=== PATIENT | male | born 1940 | race Caucasian/White ===

== ENCOUNTER 2017-01-05 08:26 | Day surgery (SDC) | payer MEDICARE, OTHER ==
[~2017-01-05] VITALS: Ht 177.8 cm; Wt 102.0 kg
--- NOTE | ~2017-01-05 | EGD ---
EGD REPORT [facility] [address] [address] NAME: SURESH PRO : [birth year] STATUS : REG [facility]#: [id number] AGE: 76 ADM/REG DATE : 01/05/17 MR#: [id number] REPORT SERV DATE: 01/05/17 DICTATED BY: STEPHANE OLIVAREZ DATE: 01/05/17 REPORT STATUS : Draft TRANSCRIBED BY: [employer] DATE: 01/05/17 [facility]oscopy Center Patient Name: Suresh Pro Date of : 1940 Attending MD: STEPHANE OLIVAREZ MD Procedure Date No Time: 01/05/2017 Procedure: Colonoscopy Indications: High risk colon cancer surveillance: Personal history of colonic polyps, FH of Colon Cancer - 1st degree relative Referring MD: ANOOP PAIGE MD Medicines: as per anesthesia Complications: No immediate complications. Procedure: Pre-Anesthesia Assessment: - ASA Grade Assessment: III - A patient with severe systemic disease. After I obtained informed consent, the scope was passed under direct vision. Throughout the procedure, the patient's blood pressure, pulse, and oxygen saturations were monitored continuously. The [facility] [id number] was introduced through the anus and advanced to the cecum, identified by appendiceal orifice and ileocecal valve. The colonoscopy was performed without difficulty. The patient tolerated the procedure. The quality of the bowel preparation was fair. Findings: The perianal and digital rectal examinations were normal. A few small and large-mouthed diverticula were found in the sigmoid colon and in the descending colon. Internal hemorrhoids were found during endoscopy and were mild. Impression: - Diverticulosis in the sigmoid colon and in the descending colon. - Internal hemorrhoids. Recommendation: - Repeat colonoscopy in 5 years for surveillance. Procedure Code(s): --- Professional --- 65760, Colonoscopy, flexible, proximal to splenic flexure; diagnostic, with or without collection of specimen(s) by brushing or washing, with or without colon decompression (separate procedure) Diagnosis Code(s): --- Professional --- K64.8, Other hemorrhoids EGD REPORT [address] [place] [address] NAME: SURESH PRO : [birth year] STATUS : REG [facility]#: [id number] AGE: 76 ADM/REG DATE : 01/05/17 MR#: [id number] REPORT SERV DATE: 01/05/17 DICTATED BY: STEPHANE OLIVAREZ. DATE: 01/05/17 REPORT STATUS : Draft TRANSCRIBED BY: [employer] DATE: 01/05/17 K57.30, Diverticulosis of large intestine without perforation or abscess without bleeding Z86.010, Personal history of colonic polyps Z80.0, Family history of malignant neoplasm of digestive organs CPT copyright 2013 [employer]. All rights reserved. The codes documented in this report are preliminary and upon crane crew supervisor review may be revised to meet current compliance requirements. STEPHANE OLIVAREZ MD 01/05/2017 10:48 AM This report has been signed electronically. Number of Addenda: 0 Note Initiated On: 01/05/2017 9:57 AM Scope Withdrawal Time 0 hours 6 minutes 1 second [id number] [facility] [place] [address]
--- NOTE | ~2017-01-05 | EGD ---
EGD REPORT [facility] [address] [address] NAME: SURESH PRO : [birth year] STATUS : REG [facility]#: [id number] AGE: 76 ADM/REG DATE : 01/05/17 MR#: [id number] REPORT SERV DATE: 01/05/17 DICTATED BY: STEPHANE OLIVAREZ DATE: 01/05/17 REPORT STATUS : Draft [facility]: [facility] DATE: 01/05/17 Endoscopy Center Patient Name: Suresh Pro Date of : 1940 Attending MD: STEPHANE OLIVAREZ MD Procedure Date No Time: 01/05/2017 Procedure: Upper GI endoscopy Indications: Epigastric abdominal pain Referring MD: NAOOP PAIGE MD Medicines: as per anesthesia Complications: No immediate complications. Procedure: Pre-Anesthesia Assessment: - ASA Grade Assessment: III - A patient with severe systemic disease. After obtaining informed consent, the endoscope was passed under direct vision. Throughout the procedure, the patient's blood pressure, pulse, and oxygen saturations were monitored continuously. The GIF H190 [id number] was introduced through the mouth, and advanced to the third part of duodenum. The upper GI endoscopy was accomplished without difficulty. The patient tolerated the procedure. Findings: The examined esophagus was normal. One linear gastric ulcer was found in the gastric antrum. The lesion was 5 mm in largest dimension. Biopsies were taken with a cold forceps for histology. The cardia and gastric fundus were normal on retroflexion. The examined duodenum was normal. Impression: - Normal esophagus. - Gastric ulcer. Biopsied. - Normal examined duodenum. Recommendation: - Await pathology results. - Use Prilosec (omeprazole) 40 mg PO daily. Procedure Code(s): --- Professional --- 31785, Esophagogastroduodenoscopy, flexible, transoral; with biopsy, single or multiple Diagnosis Code(s): --- Professional --- K25.9, Gastric ulcer, unspecified as acute or chronic, without hemorrhage or perforation EGD REPORT [facility] [address] [address] NAME: SURESH PRO : [birth year] STATUS : REG [facility] PAT#: [id number] AGE: 76 ADM/REG DATE : 01/05/17 MR#: [id number] REPORT SERV DATE: 01/05/17 DICTATED BY: STEPHANE OLIVAREZ. DATE: 01/05/17 REPORT STATUS : Draft TRANSCRIBED BY: [employer] DATE: 01/05/17 R10.13, Epigastric pain CPT copyright 2013 [employer]. All rights reserved. The codes documented in this report are preliminary and upon contract paralegal review may be revised to meet current compliance requirements. STEPHANE OLIVAREZ MD 01/05/2017 10:27 AM This report has been signed electronically. Number of Addenda: 0 Note Initiated On: 01/05/2017 10:08 AM Scope Withdrawal Time 0 hours 0 minutes 0 seconds [id number] [place] [address]
[~2017-01-05 08:26] MED LIST: ACET500CAP PO; AZILECT0.5 MG PO; CAT2 PO; COREG3 PO; CYMBALTA; CYMBALTA30 PO; EFFEX37.5 PO; EFFEX75 PO; ELIQUIS 5 MG TAB5 MG PO; FLEX PO; HALF81 PO; HYDROCHLOROT25 MG PO; IBU800 PO; KLOR-CON 1010 MEQ PO; L40 PO; LEVOTHYROXIN75 MCG PO; LIPITOR10 PO; LISINOPRIL40 MG PO; MICRO-K10 MEQ PO; MIRAPEX ER1.5 MG PO; MIRAPEX0.75 MG PO; MIRAPEX1 MG PO; MIRAPEX1.5 MG PO; NIASPAN500 PO; NIFEDICAL XL30 MG PO; NORCO1 TA1 PO; NORCO1 TA2 PO; NORV10 PO; PREVALITE4 G1 PO; PRIN20 PO; TEARS PLUS OP; TOPXL100 PO; ULTRAM50 PO; VITAMIN D31000 UNIT PO; WELCHOL625 MG OR; ZESTRIL40 MG PO
== END 2017-01-05 23:59 | disposition home or self-care (01) ==
LOC: DMU 08:26
PROVIDERS: Internal Medicine Gastroenterology
PROC: 0DJD8ZZ Inspection of Lower Intestinal Tract, Via Natural or Artificial Opening Endoscopic (ICD-10-PCS; principal; 2017-01-05 09:30)
PROC: 0DB78ZX Excision of Stomach, Pylorus, Via Natural or Artificial Opening Endoscopic, Diagnostic (ICD-10-PCS; 2017-01-05 09:30)
DX: Z12.11 Encounter for screening for malignant neoplasm of colon (principal); K29.50 Unspecified chronic gastritis without bleeding; K57.30 Diverticulosis of large intestine without perforation or abscess without bleeding; K64.8 Other hemorrhoids; I10 Essential (primary) hypertension; E03.9 Hypothyroidism, unspecified; G20 Parkinson's disease; I48.91 Unspecified atrial fibrillation; Z79.01 Long term (current) use of anticoagulants; Z79.899 Other long term (current) drug therapy; Z98.1 Arthrodesis status; Z86.010 Personal history of colon polyps; Z80.0 Family history of malignant neoplasm of digestive organs; Z90.49 Acquired absence of other specified parts of digestive tract; Z98.890 Other specified postprocedural states; Z90.79 Acquired absence of other genital organ(s)
CPT/HCPCS: 43239; G0105; 88305; 88342